=== PATIENT | male | born 1960 | race Hispanic/Latino ===

== ENCOUNTER 2019-08-19 22:23 | Emergency (ER) | payer OTHER ==
[2019-08-19] MEDS ORDERED: CEFTRIAXONE SODIUM 1 GM ONE (22:44)
[2019-08-19] MEDS ORDERED: ACETAMINOPHEN-CODEINE 300/30MG TAB ONE (22:44)
[2019-08-19] MEDS ORDERED: LIDOCAINE HCL-MPF 1% 2ML VIAL ONE (22:44)
== END 2019-08-19 23:56 | disposition home or self-care (01) ==
LOC: EDH 22:23
DX: K02.9 Dental caries, unspecified (principal)
CPT/HCPCS: 96372; 99283; J0696; J3490